=== PATIENT | male | born 1975 | race Caucasian/White ===

== ENCOUNTER 2016-08-23 00:45 | Emergency (ER) | payer OTHER ==
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
--- NOTE | 2016-08-25 09:55 | ED MED RECONCILIATION SUMMARY ---
Patient: JAKE FALL Medication Reconciliation Report [facility] VisitID: [id number] [address] [place] [address] 40y, M Registration Date/Time: 08/23/2016 Weight: 117.9 kg Height/Length: 69 in. BMI: 38.4 ALLERGIES: No Known Drug Allergy The patient's Home Medications are listed below: Not obtained. The source(s) of the original Home Medication information: Not obtained. The following Medications were given to the patient in the Emergency Department: None. The following Medications were prescribed to the patient: None.
--- NOTE | 2016-08-25 09:55 | ED MAR SUMMARY ---
..... Medication Administration Record [facility] [address] [place], [place] [id number] Patient: JAKE FALL Visit ID: [id number] 40y, M Weight: 117.9 kg Height/Length: 69 in BMI: 38.4 ALLERGIES: No Known Drug Allergy
--- NOTE | 2016-08-25 09:55 | ED MAR SUMMARY ---
..... Medication Administration Record [facility] [address] [place], [place] [id number] Patient: JAKE FALL Visit ID: [id number] 40y, M Weight: 117.9 kg Height/Length: 69 in BMI: 38.4 ALLERGIES: No Known Drug Allergy
--- NOTE | 2016-08-25 09:55 | ED MED RECONCILIATION SUMMARY ---
Patient: JAKE FALL Medication Reconciliation Report [facility] VisitID: [id number] [address] [place] [address] 40y, M Registration Date/Time: 08/23/2016 Weight: 117.9 kg Height/Length: 69 in. BMI: 38.4 ALLERGIES: No Known Drug Allergy The patient's Home Medications are listed below: Not obtained. The source(s) of the original Home Medication information: Not obtained. The following Medications were given to the patient in the Emergency Department: None. The following Medications were prescribed to the patient: None.
--- NOTE | 2016-08-25 09:55 | ED DISCHARGE INSTRUCTIONS ---
Patient: JAKE FALL General Instructions [facility] VisitID: [id number] [place] [address] 40y, M Registration Date/Time: 08/23/2016 Single laceration to the upper lip. Single contusion to the lower lip. ADDITIONAL INFORMATION Laceration, Lip and Mouth Alaceration is a cut through the skin. When the cut is on the outside of the lip, it may be closed with stitches, surgical tape, or sometimes skin glue. Cuts inside the mouth may be sutured or left open, depending on the size. When stitches are used in the mouth, they are usually the kind that dissolve. Home care The following guidelines will help you care for your laceration at home: Eat soft foods to reduce pain when chewing. If the cut isinsideyour mouth, clean the wound by rinsing your mouth after each meal and at bedtime with a mixture of equal parts water and hydrogen peroxide (do not swallow!). Or, you can use a cotton swab to apply hydrogen peroxide directly onto the cut. Mouth wounds can be painful when eating. You may use a local, [id number] numbing solution for pain relief. If this is not available, you may use any numbing solution for teething babies. You may apply this directly to the sores with a cotton-tip swab or with your finger. If the cut is on theoutsideof the lip and sutures were used, you may shower as usual after the first 24 hours, but do not put your head under water until the sutures are removed. After removing the bandage, wash the area with soap and water. Use a wet cotton swab to loosen and remove any blood or crust that forms. After cleaning, keep the wound clean and dry. Talk with your doctor before applying any antibiotic ointment to the wound. You may apply an adhesive bandage or leave the wound open. If surgical tape was used, keep the area clean and dry. If it becomes wet, blot it dry with a towel. Talk with your doctor before applying any antibiotic ointment to the wound. The surgical tape closures will usually fall off after about 5 days. If skin glue was used, do not scratch, rub, or pick at the adhesive film. Do not place tape directly over the film.Do not apply liquid, ointment, or creams to the wound while the film is inplace.Do not clean the wound with peroxide and do not apply ointment. Avoid activities that cause heavy sweating until the film has fallen off. Protect the wound from prolonged exposure to sunlight or tanning lamps. You may shower as usual but do not soak the wound in water (no swimming). If you were given an antibiotic to prevent infection, do not stop taking this medication until you have finished the prescribed course or the doctor tells you to stop. The doctor may prescribe medications for pain. Follow the doctor's instructions for taking these medications.If you have chronic liver or kidney disease or ever had a stomach ulcer or GI bleeding, talk with your doctor before using these medicines. Follow-up care Follow up with your health care provider. Cuts in and around the mouth heal in about five days. However, even with proper treatment, a wound infection sometimes occurs. Therefore, check the wound daily for the warning signs listed below. Stitches should not be left in the face for more thanfivedays; otherwise, permanent stitch hendrickson may form. Unless told otherwise, you may remove surgical tape closures yourself afterfive days, if they have not already fallen off. Ifskin glue was used, the film will fall off by itself in 510 days. When to seek medical care Get prompt medical attention if any of these occur: Increasing pain in the wound Fever of 100.4F (38C) or higher, or as directed by your health care provider Redness, swelling, or pus coming from the wound If sutures come apart or fall out or if surgical tape falls off before three days If the wound edges reopen Bleeding not controlled by direct pressure Facial Contusion (No Wake-Up) A facial contusion is a bruise with swelling and sometimes bleeding under the skin. The swelling should start to go down within two days. Although there may be no signs of a serious injury at this time, symptoms may appear later which could be a sign of a more serious problem. Therefore, watch for the warning signs below. Home care The following guidelines will help you care for your injury at home: If you have swelling of the face, apply an ice pack (ice cubes in a plastic bag, wrapped in a towel) for 20 minutes every 12 hours until the swelling starts to go down. If you have scrapes or cuts on your face, clean them daily with soap and water. Apply an antibiotic ointment or cream for the first few days to prevent infection. You may use acetaminophen or ibuprofen to control pain, unless another pain medicine was prescribed.If you have chronic liver or kidney disease or ever had a stomach ulcer or GI bleeding, talk with your doctor before using these medicines. Do not use ibuprofen in children under six months of age. For the next 24 hours: Do not take alcohol, sedatives or medicines that make you sleepy. Do not drive or operate machinery. Avoid strenuous activities. No lifting or straining. If you have had any symptoms of aconcussiontoday (nausea, vomiting, dizziness, confusion, headache, memory loss or if you were knocked out), do not return to sports or any activity that could result in another head injury until all symptoms are gone and you have been cleared by your doctor. A second head injury before fully recovering from the first one can lead to serious brain injury. Follow-up care Follow up with your doctor in one week or as directed. Note: Any X-rays or CT scans taken will be reviewed by a radiologist. You will be notified of any new findings that may affect your care. When to seek medical care Get prompt medical attention if any of the following occur: Repeated vomiting Severe or worsening headache or dizziness Unusual drowsiness, or unable to awaken as usual Confusion or change in behavior or speech, memory loss, blurred vision Convulsion (seizure) Increasing scalp or face swelling Redness, warmth or pus from the swollen area Fluid drainage or bleeding from the nose or ears Fever of 100.4F (38C) or higher, or as directed by your health care provider Increasing jaw pain with chewing or increasing pain in the sinuses Nose looks crooked or cannot breathe through your nose after swelling goes down You have been given the following additional information: Laceration, Lip/Mouth Facial Contusion, No Wakeup (Electronically signed by Michael Molina MD 08/25/2016 9:55)
== END 2016-08-23 03:15 | disposition left against medical advice (07) ==
LOC: ED SRH 00:45
DX: S01.511A Laceration without foreign body of lip, initial encounter (principal); Y04.2XXA Assault by strike against or bumped into by another person, initial encounter; Y92.9 Unspecified place or not applicable; Z87.891 Personal history of nicotine dependence